=== PATIENT | female | born 1955 | race Caucasian/White ===

== ENCOUNTER 2016-11-18 11:07 | Emergency (ER) | payer OTHER ==
[2016-11-18 11:12] VITALS: BP 140/69; PULSE 93; TEMP 98.3; BMI 37.0
--- NOTE | 2016-11-18 11:47 | PDOC ---
History of Present Illness - History of Present Illness Initial Comments: 11/18/16 12:24 The patient is a 61 year old female, with a significant past medical history of CVA (with residual left sided weakness, 2015), IDDM, CKD, hypertension, and cigarette smoking, who presents to the emergency department for evaluation of pain to her right heel since yesterday. She reports the pain is 8/10 when standing, with slight alleviation when she is sitting. She denies any traumatic event. The patient reports she has been moving recently and has been on her legs more often. She was attempting to discontinue her cane to progress her ambulation recently. Pt has not taken any medications. She denies chest pain, shortness of breath, headache and dizziness. She denies fever, chills, nausea, vomit, diarrhea and constipation. She denies dysuria, frequency, urgency and hematuria. Allergies: NKDA PCP - Dr Liz [facility] Clerical Assistant - Dr. Bradley <Nisa Martinez - Last Filed: 11/18/16 12:24> <Ceasar Pascal - Last Filed: 11/18/16 12:38> - General Chief Complaint: Pain Stated Complaint: PAIN Time Seen by Provider: 11/18/16 11:31 Past History <Nisa Martinez - Last Filed: 11/18/16 12:24> - Past Medical History CVA: Yes Diabetes: Yes HTN: Yes Hypercholesterolemia: Yes - Surgical History Orthopedic Surgery: Yes (RT SHOULDER ROTATOR CUFF RT 5TH DIGIT TENDON) - Psycho/Social/Smoking Cessation Hx Anxiety: No Suicidal Ideation: No Smoking History: Never smoked Have you smoked in the past 12 months: No Number of Cigarettes Smoked Daily: 20 Information on smoking cessation initiated: No 'Breaking Loose' booklet given: 09/21/14 Hx Alcohol Use: No Drug/Substance Use Hx: No Substance Use Type: None Hx Substance Use Treatment: No <Ceasar Pascal - Last Filed: 11/18/16 12:38> - Past Medical History Allergies/Adverse Reactions: Allergies Allergy/AdvReac Type Severity Reaction Status Date / Time cefazolin sodium [From Ancef] Allergy Verified 11/18/16 11:12 levofloxacin [From Levaquin] Allergy Verified 11/18/16 11:12 Home Medications: Ambulatory Orders Hydrochlorothiazide [Hctz -] 25 mg PO DAILY 09/21/14 Insulin (Levemir) [Levemir Flexpen -] 30 units SQ BID 09/21/14 Insulin Lispro [Humalog] 10 unit SQ TID 09/21/14 Lisinopril [Prinivil] 5 mg PO DAILY 09/21/14 Salmeterol/Fluticasone [Advair 100Mcg/50Mcg -] 1 spray IN DAILY 09/21/14 Simvastatin [Zocor -] 40 mg PO HS 09/21/14 Tiotropium [place] [Spiriva] 1 spray IN DAILY 09/21/14 Albuterol 0.083% Nebulizer Delmis [Ventolin 0.083% Nebulizer Soln -] 1 neb NEB Q4H PRN #30 vial 09/25/14 Nicotine Patch [Nicoderm Patch -] 21 mg TD DAILY #30 patch 09/25/14 Zolpidem Tartrate [Ambien] 5 mg PO HS PRN #30 tablet 09/25/14 Acidoph/L.bulg/Bif.b/S.thermop [Bacid Caplet] 1 each PO BID #60 tablet 09/29/14 Clindamycin [Cleocin -] 300 mg PO TID #21 capsule 09/29/14 Hydrocodone/Acetaminophen [Hydrocodon-Acetaminoph 7.5-325] 1 each PO DAILY PRN # 5 tablet 09/29/14 Oxycodone HCl/Acetaminophen [Percocet 5-325 mg Tablet -] 1 combo PO Q6H PRN #12 tablet MDD 4 11/18/16 Review of Systems - Review of Systems Able to Perform ROS?: Yes Comments:: 11/18/16 12:25 CONSTITUTIONAL: No reported: Fever, Chills, Diaphoresis, Generalized Weakness, Malaise, Loss of Appetite MUSCULOSKELETAL: (+) pain to heel of right foot. No reported: Arthralgia, Joint Swelling, Back pain, Neck Pain SKIN: no reported redness No reported: Rash, Itching, Pallor NEUROLOGIC: Reported: L sided weakness (Chronic) No reported: Headache, Paresthesias, Vertigo, Lightheadedness, Unsteady Gait, Seizure, Mental Status Changes, Incontinence <Nisa Martinez - Last Filed: 11/18/16 12:24> *Physical Exam - Vital Signs Last Vital Signs Temp Pulse Resp BP Pulse Ox 98.3 F 93 H 18 140/69 98 11/18/16 11:08 11/18/16 11:08 11/18/16 11:08 11/18/16 11:08 11/18/16 11:08 - Physical Exam Comments: 11/18/16 12:25 GENERAL: The patient is awake, alert, and fully oriented, Nontoxic - in no acute distress. HEAD: Normocephalic, atraumatic. EXTREMITIES: point tenderness on the R heel insertion point of achilles tendon, no erythema, warmth, induration, fluctuance, no bony tenderness, no plantar tenderness NEUROLOGICAL: No facial assymetry, Normal speech, L sided weakness SKIN: Warm, Dry, normal turgor, <Nisa Martinez - Last Filed: 11/18/16 12:24> - Vital Signs Last Vital Signs Temp Pulse Resp BP Pulse Ox 98.3 F 93 H 18 140/69 98 11/18/16 11:08 11/18/16 11:08 11/18/16 11:08 11/18/16 11:08 11/18/16 11:08 <Ceasar Pascal - Last Filed: 11/18/16 12:38> ED Treatment Course - Medications Given in the ED: ED Medications Discontinued Medications Generic Name Dose Route Start Last Admin Trade Name Freq PRN Reason Stop Dose Admin Oxycodone/Acetaminophen 1 combo 11/18/16 12:01 11/18/16 12:21 Percocet 5/325 - PO 11/18/16 12:02 1 combo ONCE ONE Administration <Nisa Martinez - Last Filed: 11/18/16 12:24> Medical Decision Making - Medical Decision Making 11/18/16 12:09 61y F hx of htn, hl, dm, cva with residula L sided weakness presents with R heel pain. on set of pain yetserday gradually, worse when she stsands or presses on it, no recent trauma, fever/chills. pt does note she has been moving and has been not using her cane. on exam pt has localized tenderness to her R heel suspect tendonitis due to overuse pt poor candidate NSADIS due to ckd will give percocet elevation, rest will have pt fu with pmd no indication for xray A portion of this note was documented by scribe services under my direction. I have reviewed the details of the note, within reason, and agree with the documentation with the following case summary and management plan written by me <Ceasar Pascal - Last Filed: 11/18/16 12:38> *DC/Admit/Observation/Transfer - Attestations Scribe Attestion: 11/18/16 12:27 Documentation prepared by Nisa Martinez, acting as medical research scientist for Ceasar Pascal MD <Nisa Martinez - Last Filed: 11/18/16 12:24> - Discharge Dispostion Admit: No <Ceasar Pascal - Last Filed: 11/18/16 12:38> Diagnosis at time of Disposition: Achilles tendinitis Qualifiers: Laterality: right Qualified Code(s): M76.61 - Achilles tendinitis, right leg - Discharge Dispostion Disposition: HOME Condition at time of disposition: Improved - Prescriptions Prescriptions: Oxycodone HCl/Acetaminophen [Percocet 5-325 mg Tablet -] 1 combo PO Q6H PRN #12 tablet MDD 4 PRN Reason: Pain - Referrals Referrals: [facility] [Provider Group] - Patient Instructions Printed Discharge Instructions: DI for Achilles Tendinopathy Additional Instructions: Return to the emergency department immediately with ANY new, persistent or worsening symptoms. Take Tylenol as needed for pain. Try to stay off of your feet. Keep it elevated if there is any swelling. You MUST call and follow up with your doctor tomorrow for further evaluation of your symptoms. Results were discussed with you. Please make sure your doctor reviews the results of your emergency evaluation. Print Language: LAO
[2016-11-18] MEDS ORDERED: OXYCODONE/APAP 5/325MG COMBO TABLET PO ONE (12:01)
[2016-11-18] MEDS ORDERED: OXYCODONE/APAP 5/325MG COMBO TABLET ONE (12:22)
[2016-11-18 12:26] LABS: URINE APPEARANCE CLEAR; URINE BILIRUBIN NEGATIVE (NEGATIVE); URINE BLOOD NEGATIVE (NEGATIVE); URINE COLOR LTYELLOW; URINE GLUCOSE (UA) NEGATIVE (NEGATIVE); URINE KETONE NEGATIVE (NEGATIVE); URINE LEUK ESTERASE NEGATIVE (NEGATIVE); URINE NITRITE NEGATIVE (NEGATIVE); URINE PROTEIN 1+ (NEGATIVE); URINE UROBILINOGEN NEGATIVE mg/dL (0.2-1.0)
[2016-11-18 12:32] LABS: URINE HYALINE CAST 2 /lpf; URINE MUCUS RARE; URINE RBC 2 /hpf (0-3); URINE WBC 6 /hpf (3-5)
== END 2016-11-18 12:45 | disposition home or self-care (01) ==
LOC: JER 11:07
DX: M76.61 Achilles tendinitis, right leg (principal); E11.9 Type 2 diabetes mellitus without complications; Z79.4 Long term (current) use of insulin; E78.00 Pure hypercholesterolemia, unspecified; I10 Essential (primary) hypertension; N18.9 Chronic kidney disease, unspecified; I69.854 Hemiplegia and hemiparesis following other cerebrovascular disease affecting left non-dominant side
CPT/HCPCS: 81003; 81015; 99282-25